=== PATIENT | male | born 1985 | race Two or more races ===

== ENCOUNTER 2023-12-23 08:31 | Emergency (ER) | payer OTHER ==
[~2023-12-23] VITALS: Ht 170.2 cm; Wt 95.7 kg
[2023-12-23] MEDS ORDERED: PEPCID AC20 MG PO (09:53)
[2023-12-23] MEDS ORDERED: AMOX-CLAV 875-1 EACH PO (09:53)
== END 2023-12-23 10:05 | disposition home or self-care (01) ==
LOC: ER 08:32
DX: H66.90 Otitis media, unspecified, unspecified ear (principal); Z88.6 Allergy status to analgesic agent